=== PATIENT | male | born 1975 | race Two or more races ===

== ENCOUNTER 2024-07-24 10:00 | Outpatient (RCR) | payer MEDICAID, SELFPAY ==
--- NOTE | 2024-06-30 11:15 | PT.OIERPT ---
PT OP Initial Eval Patient Information Outpatient Physical Therapy Treatment Date: 06/30/24 Visit Reasons: left total knee Medical Diagnosis: Z47.1; M25.562 Treatment Dx #1: Left Knee Mobility Deficits Treatment Dx #2: Left Knee Weakness Start of Care: 06/30/24 Date of Onset: 06/02/24 Smoking Status Smoking Status: Never smoker Initial Assessment Subjective: Pt is a 48 y/o male s/p left TKA 06/02/24 due to knee OA. Pt still has a lot of pain (7/10) with activities. Pt has limitation with standing, walking, chores, self care, cooking, cleaning, yardwork, and performing recreational activities. Objective: Left Knee AROM: -15 deg to 85 deg Left Knee MMTs: grossly 3-/5 Left Hip MMTs: grossly 3-/5 SLS: unable Assessment: Pt demonstrate left knee mobility and strength deficits s/p TKA leading to difficulty with ADLs. Pt will benefit from physical therapy to increase ROM, strength, and work on ambulation. Short Term and Receptionist Nurse Goals 1) Decrease knee extension lag to -8 in 12 wks to be have a normal gait pattern 2) Increase knee flexion AROM to 115 deg in 12 wks to be able to perform squatting activities 3) Increase left knee MMTs grossly to 4/ 5in 12 wks to be able to perform stairs and steps 4) Increase left hip MMTs grossly to 4-/5 in 12 wks to be able to walk more than 30 mins 5) Indep with HEP Treatment Plan 1) Manual Therapy 2) Therapeutic Activities 3) Therapeutic Exercises 4) Modalities (ice, heat) 5) Balance Training 6) Gait Training Frequency and Duration: 2 x wk for 12 wks Certification Dates: 06/30/24 to 09/28/24 Procedure Charges OP PT Eval Mod Complex 30 minutes: Yes
--- NOTE | 2024-07-08 10:45 | PT.ODAYNRPT ---
PT Outpatient Daily Note OP Daily Note Outpatient Physical Therapy Treatment Date: 07/08/24 Visit Reasons: left total knee Subjective: Pt's knee is feeling better. No new concerns to report. Objective: Please see flow chart for list of ther ex performed Assessment: tolerate exercises performed; cues to pace with exercises and focus on form today Plan: Continue with PT Length of Time (minutes) of Treatment: 30 Minutes Procedure Charges Therapeutic Exercise 30 minutes: Yes
--- NOTE | 2024-07-10 13:24 | PT.ODAYNRPT ---
PT Outpatient Daily Note OP Daily Note Outpatient Physical Therapy Treatment Date: 07/10/24 Visit Reasons: left total knee Subjective: Pt's knee is better. Pt mentioned he's able to move his knee more with less pain. Objective: Please see flow chart for list of ther ex performed Assessment: progressing with knee flexion AROM with less pain reported Plan: Continue with PT Length of Time (minutes) of Treatment: 30 Minutes Procedure Charges Therapeutic Exercise 30 minutes: Yes
--- NOTE | 2024-07-15 13:36 | PT.ODAYNRPT ---
PT Outpatient Daily Note OP Daily Note Outpatient Physical Therapy Treatment Date: 07/15/24 Visit Reasons: left total knee Subjective: Pt reports L knee is stiff and painful. As per pt he is performing HEP. Objective: Please see flow sheet for ther ex list. Assessment: Pt instructed on prone knee hang stretch exercise and encouraged to perform for HEP. Plan: Continue with pOC. Length of Time (minutes) of Treatment: 30 Minutes Procedure Charges Therapeutic Exercise 30 minutes: Yes
--- NOTE | 2024-07-17 13:48 | PT.ODAYNRPT ---
PT Outpatient Daily Note OP Daily Note Outpatient Physical Therapy Treatment Date: 07/17/24 Visit Reasons: left total knee Subjective: Pt reports knee is doing ok has been compliant with HEP. Pt yesterday he got on a stationary bike when he went to peddle his knee bent unexpectedly and he felt pain right after. Pt mentioned the pain subsided after a few minutes. Objective: Please see flow sheet for ther ex list. Assessment: Pt continues to ambulate with poor knee extension and poor heel strike. Plan: Continue with POC. Length of Time (minutes) of Treatment: 30 Minutes Procedure Charges Therapeutic Exercise 30 minutes: Yes
--- NOTE | 2024-07-22 14:03 | PT.ODAYNRPT ---
PT Outpatient Daily Note OP Daily Note Outpatient Physical Therapy Treatment Date: 07/22/24 Visit Reasons: left total knee Subjective: Pt reports L knee continues to be stiff, pt compliant with HEP. Objective: Please see flow sheet for ther ex list. Assessment: High focus on restoring ROM to normalize gait. Plan: Continue with POC. Length of Time (minutes) of Treatment: 30 Minutes Procedure Charges Therapeutic Exercise 30 minutes: Yes
--- NOTE | 2024-07-24 11:21 | PT.ODAYNRPT ---
PT Outpatient Daily Note OP Daily Note Outpatient Physical Therapy Treatment Date: 07/24/24 Visit Reasons: left total knee Subjective: Pt's knee is stiff and has difficulty with bending his knee. Pt has been doing HEP at home per NURSING SERVICES MANAGER's instruction Objective: Left Knee Flexion AROM: 98 deg//102 deg Assessment: Pt is slowly improving with knee flexion AROM. Pt instructed on seated knee flexion stretch to help increase knee flexion AROM Plan: Continue with PT Length of Time (minutes) of Treatment: 30 Minutes Procedure Charges Therapeutic Exercise 30 minutes: Yes
== END 2024-07-24 23:59 | disposition home or self-care (01) ==
LOC: CPTX 10:00
PROVIDERS: PCP Orthopaedic Surgery Orthopaedic Trauma; Referring Provider Orthopaedic Surgery Orthopaedic Trauma; Visit Provider Orthopaedic Surgery Orthopaedic Trauma
DX: M25.562 Pain in left knee (principal); R53.1 Weakness; R26.2 Difficulty in walking, not elsewhere classified; Z96.652 Presence of left artificial knee joint; M17.12 Unilateral primary osteoarthritis, left knee
CPT/HCPCS: 97110; 97162

== ENCOUNTER → 2024-07-29 | Outpatient (CLI) | payer MEDICAID, SELFPAY ==
--- NOTE | 2024-07-29 | XR_ITS ---
Examination: Left knee 2 views Technique one AP lateral left knee 2 views Exam date and time: July 29, 2024 1329 hours INDICATIONS: Status post knee replacement 2 months ago. FINDINGS: Mild osteopenia. Total left knee replacement. Satisfactory alignment. No loosening of the prosthetic components. No fracture. IMPRESSION: Total left knee arthroplasty with satisfactory alignment
== END | disposition home or self-care (01) ==
PROVIDERS: PCP Nurse Practitioner Family; Referring Provider Orthopaedic Surgery Orthopaedic Trauma; Visit Provider Orthopaedic Surgery Orthopaedic Trauma
DX: M25.562 Pain in left knee (principal); Z96.652 Presence of left artificial knee joint; Z47.1 Aftercare following joint replacement surgery
CPT/HCPCS: 73560

== ENCOUNTER 2024-08-21 11:00 | Outpatient (RCR) | payer MEDICAID, SELFPAY ==
--- NOTE | 2024-07-27 11:58 | PT.ODAYNRPT ---
PT Outpatient Daily Note OP Daily Note Outpatient Physical Therapy Treatment Date: 07/27/24 Visit Reasons: Left TKA Subjective: Pt's knee feels better. Able to bend more at home and stretches are getting easier. Objective: Left Knee AROM: 105//108 deg Assessment: Patient continues to progress with knee flexion AROM post stretching and therapy session Plan: Continue with PT Length of Time (minutes) of Treatment: 30 Minutes Procedure Charges Therapeutic Exercise 30 minutes: Yes
--- NOTE | 2024-07-29 10:53 | PT.ODAYNRPT ---
PT Outpatient Daily Note OP Daily Note Outpatient Physical Therapy Treatment Date: 07/29/24 Visit Reasons: Left TKA Subjective: Pt reports he has been performing HEP. Objective: Please see flow sheet for ther ex list. Assessment: Pt continues to ambulate with knee extension lag during heel strike. Pt encouraged to continue HEP. Plan: Continue with POC. Length of Time (minutes) of Treatment: 30 Minutes Procedure Charges Therapeutic Exercise 30 minutes: Yes
--- NOTE | 2024-08-04 11:29 | PT.ODAYNRPT ---
PT Outpatient Daily Note OP Daily Note Outpatient Physical Therapy Treatment Date: 08/04/24 Visit Reasons: Left TKA Subjective: Pt reports knee is doing ok but continues to have pain on the back of the knee and down the calf. Pt reports compliance with HEP. Objective: Please see flow sheet for ther ex list. Assessment: Continued with gastroc and soleus stretches for c/o calf tightness and pain. Plan: [place]inee with POC. Length of Time (minutes) of Treatment: 30 Minutes Procedure Charges Therapeutic Exercise 30 minutes: Yes
--- NOTE | 2024-08-06 10:43 | PT.ODAYNRPT ---
PT Outpatient Daily Note OP Daily Note Outpatient Physical Therapy Treatment Date: 08/06/24 Visit Reasons: Left TKA Subjective: Pt reports L knee is doing better, continues to perform HEP. Objective: Please see flow sheet for ther ex list. Assessment: Performed PROM into knee flexion, pt guarded can reach ~90 deg of knee flexion. Plan: Continue with POC. Length of Time (minutes) of Treatment: 30 Minutes Procedure Charges Therapeutic Exercise 30 minutes: Yes
--- NOTE | 2024-08-12 11:26 | PT.ODAYNRPT ---
PT Outpatient Daily Note OP Daily Note Outpatient Physical Therapy Treatment Date: 08/12/24 Visit Reasons: Left TKA Subjective: Pt reports L knee is ok, feels slow progress with getting mobility back. Objective: Please see flow sheet for ther ex ilst. Assessment: Performed PROM to L knee, pt guarded resulting in poor ROM. Plan: Continue with POC. Length of Time (minutes) of Treatment: 30 Minutes Procedure Charges Therapeutic Exercise 30 minutes: Yes
--- NOTE | 2024-08-19 11:51 | PT.ODAYNRPT ---
PT Outpatient Daily Note OP Daily Note Outpatient Physical Therapy Treatment Date: 08/19/24 Visit Reasons: Left TKA Subjective: Pt reports knee feels like it is starting to loosen up some, continues to perform HEP. Objective: Please see flow sheet for ther ex list. Assessment: Continued focus on improving ROM of L knee. Pt able to replicate exercises with good technique indicating compliance with HEP. Plan: Continue with pOC. Length of Time (minutes) of Treatment: 30 Minutes Procedure Charges Therapeutic Exercise 30 minutes: Yes
--- NOTE | 2024-08-21 12:58 | PT.ODAYNRPT ---
PT Outpatient Daily Note OP Daily Note Outpatient Physical Therapy Treatment Date: 08/21/24 Visit Reasons: Left TKA Subjective: Pt's knee is better. Pt does not have any concerns Objective: Please see flow chart for list of ther ex performed Assessment: progressing with closed chain exercises with less knee pain reported Plan: Continue with PT Length of Time (minutes) of Treatment: 30 Minutes Procedure Charges Therapeutic Exercise 30 minutes: Yes
== END 2024-08-21 23:59 | disposition home or self-care (01) ==
LOC: CPTX 11:00
PROVIDERS: PCP Orthopaedic Surgery Orthopaedic Trauma; Referring Provider Orthopaedic Surgery Orthopaedic Trauma; Visit Provider Orthopaedic Surgery Orthopaedic Trauma
DX: M25.562 Pain in left knee (principal); R26.2 Difficulty in walking, not elsewhere classified; Z96.652 Presence of left artificial knee joint; M17.12 Unilateral primary osteoarthritis, left knee
CPT/HCPCS: 97110

== ENCOUNTER 2024-09-17 16:00 | Outpatient (RCR) | payer MEDICAID, SELFPAY ==
--- NOTE | 2024-08-24 09:54 | PT.ODS1RPT ---
PT OP Progress/Discharge Note Date of Service: 08/24/24 Progress Note/DC Note Progress Note/Discharge Note: Progress Note Patient Information Visit Reasons: Left TKA Medical Diagnosis: Z47.1; M25.562 Treatment Dx #1: Left Knee Mobility Deficits Service Continue Service or Discharge: Continue Service Certification Date Certification Dates: 08/24/24 to 11/24/24 Status Subjective: Pt's knee is better, however, still notice stiffness. Pt has difficulty bending his knee. Pt has been able to stand, walk, and perform chores with less limitation. Pt still has difficulty with squatting, stairs, balance, and recreational activities. Objective: Left Knee AROM: -8 deg to 102 deg Left Knee MMTs: grossly 4-/5 Left Hip MMTs: grossly 3+/5 SLS: 5 sec Assessment: Pt is slowly progressing with knee ROM and strength allowing him to start light ADLs, ambulate, and perform chores with less limitation. Pt still has limitation with balance, squatting, and resuming recreational activities. Pt will continue to benefit from physical therapy; thank you for your referrals Plan: Continue with PT/POC and add 12 sessions (2 x wk for 6 wks) Procedure Charges Therapeutic Exercise 30 minutes: Yes
--- NOTE | 2024-09-07 16:14 | PT.ODAYNRPT ---
PT Outpatient Daily Note OP Daily Note Outpatient Physical Therapy Treatment Date: 09/07/24 Visit Reasons: Left TKA Subjective: Pt is be getting his right knee replaced beginning of september. Pt feels his left knee stiff Objective: Please see flow chart for list of ther ex performed Assessment: slow progress with knee flexion AROM post stretching. Pt instructed to continue stretching at home as HEP to help improve ROM Plan: Continue with PT Length of Time (minutes) of Treatment: 30 Minutes Procedure Charges Therapeutic Exercise 30 minutes: Yes
--- NOTE | 2024-09-09 14:16 | PT.ODAYNRPT ---
PT Outpatient Daily Note OP Daily Note Outpatient Physical Therapy Treatment Date: 09/09/24 Visit Reasons: Left TKA Subjective: Pt's right knee replacement is confirmed for 09/22/24. Pt's knee stiff, however, is feeling less pain in the knee lately. Objective: Please see flow chart for list of ther ex performed Assessment: slow progress with knee flexion AROM. Pt is progressing with hip exercises using increase resistance Plan: Continue with PT Length of Time (minutes) of Treatment: 30 Minutes Procedure Charges Therapeutic Exercise 30 minutes: Yes
--- NOTE | 2024-09-15 13:40 | PT.ODAYNRPT ---
PT Outpatient Daily Note OP Daily Note Outpatient Physical Therapy Treatment Date: 09/15/24 Visit Reasons: Left TKA Subjective: Pt reports L knee is doing ok, still feels stiff. Pt shared that he will be having R TKA on September 22. Objective: Please see flow sheet for ther ex list. 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 Plan: Continue with POC. Length of Time (minutes) of Treatment: 30 Minutes Procedure Charges Therapeutic Exercise 30 minutes: Yes
--- NOTE | 2024-09-17 16:05 | PTNOTE_ITS ---
PT OP Progress/Discharge Note Date of Service: 09/17/24 Progress Note/DC Note Progress Note/Discharge Note: DC Note Patient Information Visit Reasons: Left TKA Medical Diagnosis: z47.1 Treatment Dx #1: Left Knee Mobility Deficits Service Discharge Date: 09/17/24 Status Subjective: Pt's knee is feeling better, however, it's stiff and not 100%. Pt has been able to walk, stand, and perform ADLs with less limitation. Pt is getting his right knee replaced on 09/22/24 and is unsure when he will be back for physical therapy. Objective: Left Knee AROM: -8 deg to 106 deg Left Knee MMTs: grossly 4/5 Left Hip MMTs: grossly 3+/5 SLS: 5 sec Assessment: Pt demonstrate functional strength and mobility, however, did not meet set goals in therapy. Pt is d/c from care due to pending right knee TKA 09/22/24. Pt will need a new PT order to restart physical therapy; thank you for your referrals. Plan: D/C home with [facility] and follow up with MD Pending right TKA 09/22/24 Procedure Charges Therapeutic Exercise 30 minutes: Yes
== END 2024-09-21 23:59 | disposition home or self-care (01) ==
LOC: CPTX 16:00
PROVIDERS: PCP Orthopaedic Surgery Orthopaedic Trauma; Referring Provider Orthopaedic Surgery Orthopaedic Trauma; Visit Provider Orthopaedic Surgery Orthopaedic Trauma
DX: M25.562 Pain in left knee (principal); R53.1 Weakness; R26.2 Difficulty in walking, not elsewhere classified; Z96.652 Presence of left artificial knee joint
CPT/HCPCS: 97110

== ENCOUNTER 2024-12-21 14:00 | Outpatient (RCR) | payer MEDICAID, SELFPAY ==
--- NOTE | 2024-12-10 08:09 | PT.OIERPT ---
PT OP Initial Eval Patient Information Outpatient Physical Therapy Treatment Date: 12/10/24 Visit Reasons: TKA of RT Medical Diagnosis: Z47.1 Z96.651 Treatment Dx #1: R knee decreased ROM Start of Care: 12/10/24 Date of Onset: 09/22/24 Smoking Status Smoking Status: Never smoker Initial Assessment Subjective: Pt is 49 yr old guamanian speaking male s/p R TKA. Pt reports lessening pain and improved ROM in order to do ADL's but he isn't working. PMH: HTN, DM, high cholesterol Pt goal: to walk better further Objective: R knee AROM: Flexion: 90 deg Extension: -10 deg SLR: 55 deg Strength: Quads: 4/5 HS: 4/5 Gait: lateral sway Assessment: Pt presentation consistent with post op R TKA with decreased ROM, strength ? and WB tolerance. Pt lacks a few degrees of knee extension and flexion is limited by ? myofascial limitations and pain.? Pt requires skilled therapy to improve ROM ? and strength and has good rehab potential.? Eval followed by HEP with printout. Short Term and Retirement Goals 1. Independent with HEP 2. Improved knee ROM to -5 deg extension to 110 deg flexion 3. Improved quad and hamstring strength to 4+/5 4. Improved ambulatory tolerance to community distances with symmetrical gait pattern.??? Treatment Plan 1. Manual therapy ? 2. Therex ? 3. Modalities as indicated, moist heat, ice, estim Frequency and Duration: 1-2x a week for 18 visits. Pt will need providers signature to continue past 12 Certification Dates: 12/10/24 to 03/11/25 Procedure Charges OP PT Eval Mod Complex 30 minutes: Yes
--- NOTE | 2024-12-15 16:05 | PT.ODAYNRPT ---
PT Outpatient Daily Note OP Daily Note Outpatient Physical Therapy Treatment Date: 12/15/24 Visit Reasons: TKA of RT Subjective: Same as evaluation Objective: SEe F/S for therex MT: PROM into flexion x7' Assessment: Improved PROM into flexion to about 100 deg with overpressure Plan: Improve ROM of R knee Length of Time (minutes) of Treatment: 30 Minutes Procedure Charges Therapeutic Exercise 30 minutes: Yes
--- NOTE | 2024-12-17 17:15 | PT.ODAYNRPT ---
PT Outpatient Daily Note OP Daily Note Outpatient Physical Therapy Treatment Date: 12/17/24 Visit Reasons: TKA of RT Subjective: Tightness with bending the R knee Objective: SEe F/S for therex MT: PROM into flexion x7' Assessment: Improved PROM into flexion to about 100 deg with overpressure Plan: Improve ROM of R knee Length of Time (minutes) of Treatment: 30 Minutes Procedure Charges Therapeutic Exercise 30 minutes: Yes
--- NOTE | 2024-12-21 15:21 | PTNOTE_ITS ---
PT Outpatient Daily Note OP Daily Note Outpatient Physical Therapy Treatment Date: 12/21/24 Visit Reasons: TKA of RT Subjective: Pt reports R knee is progressing, feels he limps and is more limited due to L knee. Pt is pending manipulation for L knee. Objective: please see flow sheet for ther ex list. 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 Plan: Continue with poC. Length of Time (minutes) of Treatment: 30 Minutes Procedure Charges Therapeutic Exercise 30 minutes: Yes
== END 2024-12-21 23:59 | disposition home or self-care (01) ==
LOC: CPTX 14:00
PROVIDERS: PCP Orthopaedic Surgery Orthopaedic Trauma; Referring Provider Orthopaedic Surgery Orthopaedic Trauma; Visit Provider Orthopaedic Surgery Orthopaedic Trauma
DX: M25.561 Pain in right knee (principal); Z96.651 Presence of right artificial knee joint; I10 Essential (primary) hypertension; E11.9 Type 2 diabetes mellitus without complications
CPT/HCPCS: 97110; 97162

== ENCOUNTER 2025-01-21 16:00 | Outpatient (RCR) | payer MEDICAID, SELFPAY ==
--- NOTE | 2024-12-28 16:53 | PT.ODAYNRPT ---
PT Outpatient Daily Note OP Daily Note Outpatient Physical Therapy Treatment Date: 12/28/24 Visit Reasons: RT TKA Subjective: Tightness with bending the R knee Objective: SEe F/S for therex MT: PROM into flexion x7' Assessment: Improved PROM into flexion to about 100 deg with overpressure Plan: Improve ROM of R knee Length of Time (minutes) of Treatment: 30 Minutes Procedure Charges Therapeutic Exercise 30 minutes: Yes
--- NOTE | 2024-12-30 16:55 | PT.ODAYNRPT ---
PT Outpatient Daily Note OP Daily Note Outpatient Physical Therapy Treatment Date: 12/30/24 Visit Reasons: RT TKA Subjective: Tightness with bending the R knee Objective: SEe F/S for therex MT: PROM into flexion x7' Assessment: Improved PROM into flexion to about 100 deg with overpressure and pain Plan: Improve ROM of R knee Length of Time (minutes) of Treatment: 30 Minutes Procedure Charges Therapeutic Exercise 30 minutes: Yes
--- NOTE | 2025-01-07 17:41 | PT.ODAYNRPT ---
PT Outpatient Daily Note OP Daily Note Outpatient Physical Therapy Treatment Date: 01/07/25 Visit Reasons: RT TKA Subjective: Tightness with bending the R knee Objective: See F/S for therex Assessment: R knee flexion limited by scar tissue adhesions to about 100 deg with overpressure Plan: Continue per POC Length of Time (minutes) of Treatment: 30 Minutes Procedure Charges Therapeutic Exercise 30 minutes: Yes
--- NOTE | 2025-01-11 18:14 | PT.ODAYNRPT ---
PT Outpatient Daily Note OP Daily Note Outpatient Physical Therapy Treatment Date: 01/11/25 Visit Reasons: RT TKA Subjective: Tightness with bending the R knee but he's walking better Objective: See F/S for therex Assessment: Improved strength and WB tolerance of R knee with step ups adn squats. R knee flexion limited by scar tissue adhesions to about 100 deg with overpressure Plan: Continue per POC Length of Time (minutes) of Treatment: 30 Minutes Procedure Charges Therapeutic Exercise 30 minutes: Yes
--- NOTE | 2025-01-13 15:56 | PT.ODAYNRPT ---
PT Outpatient Daily Note OP Daily Note Outpatient Physical Therapy Treatment Date: 01/13/25 Visit Reasons: RT TKA Subjective: Pt reports knee progress is slow. PT has returned to work but notices he has a hard time bending his knee. Objective: Please see flow sheet for ther ex list. Assessment: Pt instructed on updated HEP to focus on restoring ROM. Plan: Continue with pOC. Length of Time (minutes) of Treatment: 30 Minutes Procedure Charges Therapeutic Exercise 30 minutes: Yes
--- NOTE | 2025-01-19 16:10 | PT.ODAYNRPT ---
PT Outpatient Daily Note OP Daily Note Outpatient Physical Therapy Treatment Date: 01/19/25 Visit Reasons: RT TKA Subjective: Pt reports R knee is doing better. Objective: Please see flow sheet for ther ex list. Assessment: Pt demonstrates hip circumduction gait due to poor knee flexion during gait. Plan: Continue with pOC. Length of Time (minutes) of Treatment: 30 Minutes Procedure Charges Therapeutic Exercise 30 minutes: Yes
--- NOTE | 2025-01-21 17:28 | PT.ODAYNRPT ---
PT Outpatient Daily Note OP Daily Note Outpatient Physical Therapy Treatment Date: 01/21/25 Visit Reasons: RT TKA Subjective: Tightness with bending the R knee but he's walking better Objective: See F/S for therex Assessment: Improved strength and WB tolerance of R knee with step ups adn squats. R knee flexion limited by scar tissue adhesions to about 100 deg with overpressure Plan: Continue per POC Length of Time (minutes) of Treatment: 30 Minutes Procedure Charges Therapeutic Exercise 30 minutes: Yes
== END 2025-01-21 23:59 | disposition home or self-care (01) ==
LOC: CPTX 16:00
PROVIDERS: PCP Orthopaedic Surgery Orthopaedic Trauma; Referring Provider Orthopaedic Surgery Orthopaedic Trauma; Visit Provider Orthopaedic Surgery Orthopaedic Trauma
DX: M25.561 Pain in right knee (principal); Z96.651 Presence of right artificial knee joint; I10 Essential (primary) hypertension; E11.9 Type 2 diabetes mellitus without complications
CPT/HCPCS: 97110

== ENCOUNTER 2025-01-28 16:00 | Outpatient (RCR) | payer MEDICAID, SELFPAY ==
--- NOTE | 2025-01-25 16:43 | PT.ODAYNRPT ---
PT Outpatient Daily Note OP Daily Note Outpatient Physical Therapy Treatment Date: 01/25/25 Visit Reasons: RT TKA Subjective: Tightness with bending the R knee but he's walking better Objective: See F/S for therex Assessment: Improved strength and WB tolerance of R knee with step ups and squats. R knee flexion limited by scar tissue adhesions to about 100 deg with overpressure Plan: Reassess Length of Time (minutes) of Treatment: 30 Minutes Procedure Charges Therapeutic Exercise 30 minutes: Yes
--- NOTE | 2025-01-28 18:20 | PT.ODS1RPT ---
PT OP Progress/Discharge Note Date of Service: 01/28/25 Progress Note/DC Note Progress Note/Discharge Note: DC Note Patient Information Visit Reasons: RT TKA Medical Diagnosis: z47.1 Service Continue Service or Discharge: Discharge Discharge Date: 01/28/25 Status Subjective: Tightness with bending the R knee but he's walking better required distances Objective: See F/S for therex R knee AROM: Extension: full Flexion: 85 deg Strength: Quads and HS 4+/5 Assessment: Pt has attended the eval and 06/04 Rx sessions with good progress with therapy goals. He has improved strength to 4+/5 to meet that goal and WB tolerance of R knee with step ups and squats. R knee flexion limited by scar tissue adhesions to about 100 deg with overpressure so he hasn't met the flexion goal but he can do HH chores.He met the extension goal of at least -5 deg. Pt is ambulating community distances to meet that goal. Plan: D/C with HEP Procedure Charges Therapeutic Exercise 30 minutes: Yes
== END 2025-02-21 23:59 | disposition home or self-care (01) ==
LOC: CPTX 16:00
PROVIDERS: PCP Orthopaedic Surgery Orthopaedic Trauma; Referring Provider Orthopaedic Surgery Orthopaedic Trauma; Visit Provider Orthopaedic Surgery Orthopaedic Trauma
DX: M25.561 Pain in right knee (principal); Z96.651 Presence of right artificial knee joint; I10 Essential (primary) hypertension; E11.9 Type 2 diabetes mellitus without complications
CPT/HCPCS: 97110